=== PATIENT | female | born 1950 | race Caucasian/White ===

== ENCOUNTER 2017-02-23 09:43 | Inpatient (IN) | payer OTHER ==
[~2017-02-23] VITALS: Ht 162.6 cm; Wt 76.0 kg
[~2017-02-23 09:43] MED LIST: ATIVAN0.5 MG PO; BENTYL20 MG PO; BETHANECHOL CHL10 MG PO; CIPRO500 MG PO; COZAAR50 MG PO; DILAUDID2 MG PO; DOMP10T PO; DOMPERIDONE; DOMPERIDONE1 GM MC; ERYTHROMYCIN250 M1 PO; IMITREX100 MG PO; IMODIUM MS REL1 EACH PO; Imitrex PO; KEFLEX500 MG PO; LISINOPRIL10 MG PO; LOSARTAN POTAS100 MG PO; LOSARTAN POTASS50 MG PO; MIRTAZAPINE15 MG PO; Motilium PO; NEUTRA-PHOS,1 PACKET PO; NORVASC5 MG PO; OMEGA 3 1,0001 EACH PO; PANTOPRAZOLE SO40 MG PO; PHENERGAN12.5 M1 PO; PHENERGAN25 MG PR; PRAVASTATIN SOD40 MG PO; PRILOSEC OTC20 MG PO; PRILOSEC20 MG PO; PROMETHAZINE; PROMETHAZINE HC25 M1; PROMETHAZINE HC25 M1 PO; PROMETHAZINE HC50 M1 PO; Phenergan PO; SUMATRIPTAN SU100 MG PO; TOPAMAX100 MG PO; TOPIRAGEN50 MG PO; TOPIRAMATE50 MG PO; TRAMADOL HCL50 MG PO; Topamax PO; Urecholine PO; VITAMIN C500 M1 PO; VITAMIN D400 UNI1 PO; VITAMIN D5000 UNIT PO; ZOFRAN ODT4 MG PO; ZOFRAN4 MG PO; ZOFRAN8 MG PO
[2017-02-23 10:52] LABS: HEMATOCRIT 38.3 % (36.0-46.0); MCH 26.2 PG (29.0-34.0); MCHC 32.6 G/DL (30.0-36.0); MCV 80.3 FL (83-99); PLATELET COUNT 406 K/uL (156-360); RBC DIS.WIDTH-CV 16.3 % (11.8-14.6); RBC DIS.WIDTH-SD 47.3 % (39-53); RED BLOOD COUNT 4.77 M/uL (3.80-5.20); WHITE BLOOD COUNT 17.2 K/uL (4.1-10.2)
[2017-02-23 11:09] LABS: CHLORIDE 103 mEq/L (99-109); SODIUM 136 mEq/L (136-147)
[2017-02-23 11:11] LABS: GLUCOSE 135 mg/dL (70-99)
[2017-02-23 11:12] LABS: ANION GAP 14 MEQ/L (2-14)
[2017-02-23 11:13] LABS: TOTAL BILIRUBIN 0.5 mg/dL (0.0-1.0)
[2017-02-23 11:15] LABS: ALKALINE PHOSPHATASE 81 IU/L (3-129); GFR ESTIMATE (CALCULATED) > 59 mL/min/
[2017-02-23 11:16] LABS: UREA NITROGEN (BUN) 25 mg/dL (9-23)
[2017-02-23 12:06] LABS: LIPASE 9 U/L (1.0-51.0)
[2017-02-23 13:22] LABS: ADD MIUA? YES; BILIRUBIN NEGATIVE; BLOOD SMALL; COLOR YELLOW ((YELLOW)); GLUCOSE (STRIP) NEGATIVE; KETONES 20; LEUKOCYTES MODERATE; NITRITE NEGATIVE; PROTEIN (STRIP) 100; SPECIFIC GRAVITY 1.014 (1.000-1.030); UROBILINOGEN 0.2 MG/DL (0.2-1.0)
[2017-02-23 13:29] LABS: BACTERIA RARE /HPF; EPITHELIAL CELLS RARE /HPF; MUCUS 2+ /LPF; UCUL ADDED? NO; WHITE BLOOD CELLS 15-20 /HPF (0-5)
[2017-02-23] MEDS ORDERED: PROTONIX40 MG PO (16:39)
[2017-02-23] MEDS ORDERED: CO Q-10100 MG PO (16:40)
[2017-02-23] MEDS ORDERED: MIRTAZAPINE15 MG PO (16:40)
[2017-02-23 18:16] LABS: C-REACTIVE PROTEIN 1.3 MG/L (0-10); SAMPLE HEMOLYSIS CHECK 0; SAMPLE ICTERIC CHECK 0; SAMPLE LIPEMIA CHECK 0
[2017-02-23 20:08] VITALS: BP 140/84
[2017-02-24] VITALS (7 sets, daily range): BP systolic 126–191; BP diastolic 63–89
[2017-02-24 07:34] LABS: ANION GAP 10 MEQ/L (2-14); CHLORIDE 107 MEQ/L (99-109); GFR ESTIMATE (CALCULATED) > 59 mL/min/; GLUCOSE 129 mg/dL (70-99); POTASSIUM 3.7 MEQ/L (3.7-5.4); SAMPLE HEMOLYSIS CHECK 0; SAMPLE ICTERIC CHECK 0; SAMPLE LIPEMIA CHECK 0; SODIUM 137 MEQ/L (136-147); UREA NITROGEN (BUN) 13 mg/dL (9-23)
[2017-02-24 08:01] LABS: HEMATOCRIT 35.7 % (36.0-46.0); MCH 26.5 PG (29.0-34.0); MCHC 32.5 G/DL (30.0-36.0); MCV 81.7 FL (83-99); MEAN PLAT.VOLUME 9.9 uM^3 (9.5-12.4); PLATELET COUNT 333 K/uL (156-360); RBC DIS.WIDTH-CV 16.5 % (11.8-14.6); RBC DIS.WIDTH-SD 49.1 % (39-53); RED BLOOD COUNT 4.37 M/uL (3.80-5.20); WHITE BLOOD COUNT 11.7 K/uL (4.1-10.2)
[2017-02-25 03:12] VITALS: BP 154/77
[2017-02-25 07:04] LABS: HEMATOCRIT 33.3 % (36.0-46.0); MCH 27.4 PG (29.0-34.0); MCHC 33.3 G/DL (30.0-36.0); MCV 82.2 FL (83-99); MEAN PLAT.VOLUME 10.2 uM^3 (9.5-12.4); PLATELET COUNT 295 K/uL (156-360); RBC DIS.WIDTH-CV 16.8 % (11.8-14.6); RED BLOOD COUNT 4.05 M/uL (3.80-5.20); WHITE BLOOD COUNT 10.5 K/uL (4.1-10.2)
[2017-02-25 07:21] VITALS: BP 166/77
[2017-02-25 07:27] LABS: ANION GAP 9 MEQ/L (2-14); CHLORIDE 107 MEQ/L (99-109); GFR ESTIMATE (CALCULATED) > 59 mL/min/; GLUCOSE 99 mg/dL (70-99); POTASSIUM 3.3 MEQ/L (3.7-5.4); SAMPLE HEMOLYSIS CHECK 0; SAMPLE ICTERIC CHECK 0; SAMPLE LIPEMIA CHECK 0; SODIUM 135 MEQ/L (136-147); UREA NITROGEN (BUN) 11 mg/dL (9-23)
[2017-02-25 10:50] VITALS: BP 160/70
[2017-02-25 15:00] VITALS: BP 125/72
[2017-02-25 19:19] VITALS: BP 169/76
[2017-02-25 22:41] VITALS: BP 142/68
[2017-02-26 07:01] LABS: ANION GAP 9 MEQ/L (2-14); CHLORIDE 111 MEQ/L (99-109); GFR ESTIMATE (CALCULATED) > 59 mL/min/; GLUCOSE 88 mg/dL (70-99); POTASSIUM 3.4 MEQ/L (3.7-5.4); SAMPLE HEMOLYSIS CHECK 0; SAMPLE ICTERIC CHECK 0; SAMPLE LIPEMIA CHECK 0; SODIUM 140 MEQ/L (136-147); UREA NITROGEN (BUN) 8 mg/dL (9-23)
[2017-02-26 07:19] VITALS: BP 140/67
[2017-02-26] MEDS ORDERED: PROTONIX40 MG PO (09:26)
[2017-02-26] MEDS ORDERED: AMLODIPINE BESYL5 MG PO (09:27)
== END 2017-02-26 12:45 | disposition home or self-care (01) | DRG 392 ==
LOC: EME 09:43 → EDOF 16:07 → 5EAST 16:07
PROVIDERS: Hospitalist; Internal Medicine
PROC: 0DJD8ZZ Inspection of Lower Intestinal Tract, Via Natural or Artificial Opening Endoscopic (ICD-10-PCS; principal; 2017-02-25)
DX: K31.84 Gastroparesis (principal); K29.60 Other gastritis without bleeding; K22.10 Ulcer of esophagus without bleeding; E87.6 Hypokalemia; I10 Essential (primary) hypertension; I48.91 Unspecified atrial fibrillation; G40.909 Epilepsy, unspecified, not intractable, without status epilepticus; E87.2 Acidosis; K76.0 Fatty (change of) liver, not elsewhere classified; D50.9 Iron deficiency anemia, unspecified
CPT/HCPCS: 74000; 74177; 80048; 80053; 81003; 82378; 83690; 85027; 86140; 87493; 87506; 99281; 99285; C9113; J0360; J0696; J0780; J1650; J2270; J2405; J2550; J3010; J3480; J7040; J7050; S0028

== ENCOUNTER 2017-04-29 09:28 | Emergency (ER) | payer OTHER ==
[~2017-04-29] VITALS: Ht 162.6 cm; Wt 75.5 kg
[~2017-04-29 09:28] MED LIST changes: +AMLODIPINE BESYL5 MG PO; +CO Q-10100 MG PO; +PROTONIX40 MG PO
[2017-04-29 10:48] LABS: EOSINOPHIL (%) 0 % (0-5); HEMATOCRIT 38.8 % (36.0-46.0); IMMATURE GRANULOCYTE (%) 0.7 % (0.0-0.7); IMMATURE GRANULOCYTE COUNT 0.1 K/uL; INSTRUMENT ABS NEUTROPHIL CT 10.6 K/uL; LYMPHOCYTE COUNT 1.3 K/uL (1.0-2.8); MCH 26.6 PG (29.0-34.0); MCHC 32.7 G/DL (30.0-36.0); MCV 81.3 FL (83-99); MEAN PLAT.VOLUME 9.5 uM^3 (9.5-12.4); MONOCYTE COUNT 0.6 K/uL (0-0.8); NEUTROPHIL (%) 83.7 % (45-76); NEUTROPHIL COUNT 10.6 K/uL (1.8-6.4); PLATELET COUNT 349 K/uL (156-360); RBC DIS.WIDTH-CV 14.7 % (11.8-14.6); RBC DIS.WIDTH-SD 43.9 % (39-53); RED BLOOD COUNT 4.77 M/uL (3.80-5.20); WHITE BLOOD COUNT 12.6 K/uL (4.1-10.2)
[2017-04-29 10:59] LABS: CHLORIDE 103 mEq/L (99-109); POTASSIUM 3.1 mEq/L (3.7-5.4); SODIUM 136 mEq/L (136-147)
[2017-04-29 11:01] LABS: GLUCOSE 125 mg/dL (70-99)
[2017-04-29 11:03] LABS: ANION GAP 14 MEQ/L (2-14); TOTAL BILIRUBIN 0.6 mg/dL (0.0-1.0)
[2017-04-29 11:05] LABS: ALKALINE PHOSPHATASE 87 IU/L (3-129); GFR ESTIMATE (CALCULATED) > 59 mL/min/
[2017-04-29 11:06] LABS: UREA NITROGEN (BUN) 26 mg/dL (9-23)
[2017-04-29 11:08] LABS: LIPASE 10 U/L (1.0-51.0)
[2017-04-29] MEDS ORDERED: BENTYL20 MG PO (16:32)
[2017-04-29 17:12] VITALS: BP 181/116
== END 2017-04-29 17:20 | disposition home or self-care (01) ==
LOC: EME 09:28
PROVIDERS: Emergency Medicine
DX: K31.84 Gastroparesis (principal); I10 Essential (primary) hypertension
CPT/HCPCS: 74022; 74177; 80053; 83690; 85025; 99281; 99285; J0780; J1885; J2270; J2405; J7030